=== PATIENT | male | born 1975 | race Caucasian/White ===

== ENCOUNTER 2018-10-08 20:31 | Emergency (ER) | payer SELFPAY ==
--- NOTE | 2018-10-08 20:43 | ED Physician Documentation ---
General Adult - HISTORIAN Historian: patient - HPI Stated Complaint: nausea vomiting and diarreha x 3 weeks Chief Complaint: Nausea,Vomiting,Diarrhea Onset: other (3 weeks "on and off" ) Timing: still present Severity: mild Further Comments: yes (He reports he was starting to feel bad after eating some sausages 3 weeks ago and his kids have been sick as well. He has only had a "motrin a few days ago" and pepto tablet but states he vomited that up. He denies any pain in abdomen but states the abdomen is sore from the vomiting. He has had "a lot" of vomiting today. No fever. No rash. No other expsosures) - ROS CONST: no problems CVS/RESP: none GI/: problems urinating, vomiting, nausea, diarrhea. denies: abdominal pain MS/SKIN/LYMPH: none - PAST HX Past History: none Immunizations: UTD Allergies/Adverse Reactions: Allergies Allergy/AdvReac Type Severity Reaction Status Date / Time amoxicillin Allergy Intermediate Hives Verified 10/08/18 21:20 - SOCIAL HX Smoking History: cigarettes Alcohol Use: none Drug Use: marijuana - FAMILY HX Family History: No - VITAL SIGNS Vital Signs: Vital Signs Temp Pulse Resp BP Pulse Ox 124/82 09/06/16 11:42 - REVIEWED ASSESSMENTS Nursing Assessment Reviewed: Yes Vitals Reviewed: Yes Progress - Progress Progress: 2139: resolved nausea . He denies any abdominal pain. He is asking for a drink DG 2212: states he feels better and would like to go home. He was able to drink water about 10 min ago with no nausea or vomiting. DG 2215: no vomiting since in ER DG General Adult Physical Exam - PHYSICAL EXAM GENERAL APPEARANCE: no distress EENT: eye inspection normal, ENT inspection normal, no signs of dehydration NECK: normal inspection RESPIRATORY: no resp distress, chest non-tender, breath sounds normal CVS: reg rate & rhythm, heart sounds normal ABDOMEN: soft, normal bowel sounds, no distension, non-tender BACK: normal inspection, no CVA tenderness SKIN: warm/dry, normal color EXTREMITIES: non-tender, normal range of motion, no evidence of injury, no edema NEURO: oriented X3 Discharge Clincal Impression: Nausea and vomiting Qualifiers: Vomiting type: unspecified Vomiting Intractability: non-intractable Qualified Code(s): R11.2 - Nausea with vomiting, unspecified Referrals: Isidro Rizvi MD [Primary Care Provider] - 2 Days Comments: 1. Zofran 4 mg take 1 by mouth every 8 hours as needed for nausea 2. Increase fluids 3. [place] diet 4. Follow up with PCP if no improvement 5. Return to ER for any concerns Condition: Stable Disposition: 01 HOME, SELF-CARE Decision to Admit: NO Date of Decison to Admit: 10/08/18 Decision Time: 22:16
[2018-10-08] MEDS: ONDANSETRON HCL/PF 4 MG/ 2ML VIAL IVP ONE (21:00)
[2018-10-08] MEDS: 0.9 % SODIUM CHLORIDE 500 ML IV ONE (21:08)
[2018-10-08 21:10] LABS: BASOPHILS % 0.5 (0.0-1.5); EOSINOPHILS % 1.2 % (0.0-6.8); MEAN CORPUSCULAR HEMOGLOBIN 29.9 pg (28.0-34.0); NEUTROPHILS # 11.5 # k/uL (1.4-7.7)
[2018-10-08 21:25] LABS: eGFR (Non-African) > 60
[2018-10-08 23:20] VITALS: BP 114/76
== END 2018-10-08 22:30 | disposition home or self-care (01) ==
LOC: ED 20:31
DX: R11.2 Nausea with vomiting, unspecified (principal); R05 Cough; F17.200 Nicotine dependence, unspecified, uncomplicated
CPT/HCPCS: 80053; 80320; 83690; 85025; 99282; 99283; J2405; J7060; 36415; 80377; 81002; 96365; 96375; G0480; G0481; S1016